=== PATIENT | female | born 1960 | race Caucasian/White ===

== ENCOUNTER 2022-10-08 12:03 | Outpatient (CLI) | payer BC | END 2022-10-08 12:04 | disposition home or self-care (01) | LOC: CSHMAMMO 12:03 | PROVIDERS: ATTEND Family Medicine | DX: Z12.31 Encounter for screening mammogram for malignant neoplasm of breast (principal); Z91.89 Other specified personal risk factors, not elsewhere classified | CPT/HCPCS: 77063; 77067 ==

== ENCOUNTER 2022-12-08 14:37 | Outpatient (CLI) | payer BC | END 2022-12-08 14:38 | disposition home or self-care (01) | LOC: CSHULT 14:37 | PROVIDERS: ATTEND Family Medicine | DX: M79.662 Pain in left lower leg (principal); R79.1 Abnormal coagulation profile ==

== ENCOUNTER 2023-10-18 08:30 | Outpatient (CLI) | payer BC | END 2023-10-18 08:31 | disposition home or self-care (01) | LOC: CSHMAMMO 08:30 | PROVIDERS: ATTEND Family Medicine | DX: Z12.31 Encounter for screening mammogram for malignant neoplasm of breast (principal); Z91.89 Other specified personal risk factors, not elsewhere classified | CPT/HCPCS: 77063; 77067 ==